=== PATIENT | female | born 1970 | race Caucasian/White ===

== ENCOUNTER 2018-11-21 12:40 | Inpatient (IN) | payer OTHER ==
[~2018-11-21] VITALS: Ht 167.6 cm; Wt 80.0 kg
[2018-11-21 13:32] LABS: Base Excess Venous -15.9 mmol/L; PCO2 Venous 36.7 mmHg (38-42); PO2 Venous 46.3 mmHg (38-42); pH Blood Venous 7.15 (7.34-7.37)
[2018-11-21 13:37] LABS: BASOPHILS ABSOLUTE AUTO 0.07 K/mm3 (0.00-0.23); BASOPHILS PERCENT AUTO 1 % (0-2); EOSINOPHILS ABSOLUTE AUTO 0.08 K/mm3 (0.00-0.68); EOSINOPHILS PERCENT AUTO 1 % (0-6); Hematocrit 44.4 % (33.0-51.0); Hemoglobin 14.9 g/dL (11.5-16.0); IMMATURE GRAN ABSOLUTE AUTO 0.06 K/mm3 (0.00-0.10); IMMATURE GRAN PERCENT AUTO 1 % (0-1); LYMPHOCYTES PERCENT AUTO 18 % (21-46); MONOCYTES ABSOLUTE AUTO 0.41 K/mm3 (0.16-1.47); MONOCYTES PERCENT AUTO 4 % (4-13); Mean Corpuscular HGB 33.1 pg (26.0-34.0); Mean Corpuscular HGB Conc 33.6 g/dL (31.5-36.5); Mean Corpuscular Volume 99 fL (80-100); Mean Platelet Volume 11.7 fL (9.1-12.4); NEUTROPHILS ABSOLUTE AUTO 8.73 K/mm3 (1.96-9.15); NEUTROPHILS PERCENT AUTO 77 % (41-73); Platelet Count 298 K/mm3 (150-400); RDW Coefficient Variation 11.3 % (11.7-14.2); RDW Standard Deviation 40.8 fL (35.1-46.3); White Blood Cell Count 11.35 K/mm3 (4.00-11.30)
[2018-11-21 14:08] LABS: Source, Urine Clean Catch
[2018-11-21 14:09] LABS: Alanine Aminotransfer (ALT/SGP 26 U/L (12-78); Albumin, Blood 4.4 g/dL (3.4-5.0); Alk Phos 97 U/L (50-136); Anion Gap 19 mmol/L (6-16); Aspartate Aminotrans (AST/SGOT 18 U/L (12-37); Bilirubin, Total 0.8 mg/dL (0.1-1.0); Blood Urea Nitrogen 21 mg/dL (8-24); Bun/Creatinine Ratio 24.1 (12.0-20.0); CO2, Blood 14 mmol/L (21-32); Chloride, Blood 98 mmol/L (98-108); Creatinine, Blood 0.87 mg/dL (0.40-1.00); Globulin, Blood 4.3 g/dL (2.2-4.0); Glomerular Filtration Rate >60 (60-); Glucose, Blood 441 mg/dL (70-99); Potassium, Blood 4.8 mmol/L (3.5-5.5); Sodium, Blood 131 mmol/L (136-145); Total Protein, Blood 8.7 g/dL (6.4-8.2)
[2018-11-21] MEDS ORDERED: [UNRECOGNIZED DRUG - OTHER] (14:09)
[2018-11-21 14:12] LABS: Bilirubin, Urine Neg (Neg); Blood, Urine Neg (Neg); Glucose Qualitative, Urine 4+ (Neg); Ketones, Urine 4+ (Neg); Leukocyte Esterase, Urine Neg (Neg); Nitrite, Urine Neg (Neg); Protein, Urine 2+ (Neg); Specific Gravity, Urine 1.025 (1.003-1.022); Urobilinogen, Urine NORM (Normal)
[2018-11-21 14:20] LABS: Beta-hydroxybutyrate 74.2 mg/dL (0.2-2.8)
[2018-11-21 14:26] LABS: Appearance, Urine Clear (Clear); Color, Urine Pale Yellow (P-Yellow)
[2018-11-21 14:29] LABS: Bacteria Mod /hpf; Red Blood Cells, Urine Not Seen /hpf (0-2); Squamous Epithelial Cells Mod /hpf (Few); White Blood Cells, Urine Not Seen /hpf (0-5)
--- NOTE | 2018-11-21 17:27 | NUR ---
INITIAL ASSESSMENT PATIENT ARRIVED TO UNIT AT 1715. PATIENT ALERT AND ORIENTED X 4, AFEBRILE. PATIENT STATES THAT SHE FEELS "WEAK AND TIRED". PATIENT DENIES PAIN. PATIENT SATTING 90% AND GREATER ON RA. LUNGS CLEAR T/O. PATIENT DENIES COUGH. PATIENT IN SR TO ST, HR 90S TO LOW 100S. BP STABLE. PATIENT DENIES NAUSEA. PATIENT NPO AT THIS TIME. WNL. SKIN WNL. INSULIN DRIP INFUSING AT 7 UNITS/ HOUR, NS AT 125 MLS/ HOUR. PATIENT ORIENTED TO UNIT, ROOM, AND CALL LIGHT. BED LOW, CALL LIGHT IN REACH. WILL CONTINUE TO MONITOR PATIENT FREQUENTLY THROUGHOUT SHIFT.
[2018-11-21] MEDS ORDERED: ESTR2 PO (17:38)
--- NOTE | 2018-11-21 19:42 | NUR ---
SHIFT SUMMARY PATIENT REMAINED ALERT AND ORIENTED X 4, AFEBRILE. PATIENT STATES THAT SHE IS FEELING QUITE A BIT BETTER. PATIENT HAS HAD NO COMPLAINTS THIS SHIFT. RESP REMAINED WNL. PATIENT REMAINED IN SR TO ST, HR 90S TO LOW 100S. BP STABLE. PATIENT HAS HAD NO COMPLAINTS OF NAUSEA. PATIENT HAS REMAINED NPO. PATIENT DID NOT HAVE BM THIS SHIFT. WNL. SKIN WNL. INSULIN DRIP CURRENTLY INFUSING AT 4 UNITS/ HOUR, NS REMAINS AT 125 MLS/ HOUR. FAMILY REMAINS IN ROOM VISITING WITH PATIENT. BED LOW, CALL LIGHT IN REACH. REPORT HAS BEEN GIVEN TO ASSUMING CREEL CLERK RN.
--- NOTE | 2018-11-21 20:57 | NUR ---
ASSUMED CARE OF PT, REPORT RCV'D FROM [facility]. PT ALERT/ORIENTED NO COMPLAINT OF DIZZINESS/NAUSEA/VOMITING. PT CURRENTLY ON INSULIN @ 4U/HR WITH NS @125 ML/HR. ALL VSS, PT STANDBY ASSIST WITH NO DIFFICULTY AMBULATING. SEE FULL SHIFT ASSESSMENT.
[2018-11-21 21:21] LABS: Anion Gap 11 mmol/L (6-16); Blood Urea Nitrogen 16 mg/dL (8-24); Bun/Creatinine Ratio 21.1 (12.0-20.0); CO2, Blood 18 mmol/L (21-32); Calcium, Blood 8.1 mg/dL (8.5-10.1); Chloride, Blood 109 mmol/L (98-108); Creatinine, Blood 0.76 mg/dL (0.40-1.00); Glomerular Filtration Rate >60 (60-); Glucose, Blood 138 mg/dL (70-99); Potassium, Blood 4.4 mmol/L (3.5-5.5); Sodium, Blood 138 mmol/L (136-145)
[2018-11-22 02:22] LABS: Hematocrit 36.1 % (33.0-51.0); Hemoglobin 12.5 g/dL (11.5-16.0); Mean Corpuscular HGB 33.7 pg (26.0-34.0); Mean Corpuscular HGB Conc 34.6 g/dL (31.5-36.5); Mean Corpuscular Volume 97 fL (80-100); Mean Platelet Volume 10.8 fL (9.1-12.4); Platelet Count 273 K/mm3 (150-400); RDW Coefficient Variation 11.3 % (11.7-14.2); Red Blood Cell Count 3.71 M/mm3 (3.80-5.20)
[2018-11-22 02:41] LABS: Alanine Aminotransfer (ALT/SGP 17 U/L (12-78); Albumin, Blood 3.2 g/dL (3.4-5.0); Alk Phos 65 U/L (50-136); Anion Gap 7 mmol/L (6-16); Aspartate Aminotrans (AST/SGOT 8 U/L (12-37); Bilirubin, Total 0.3 mg/dL (0.1-1.0); Blood Urea Nitrogen 13 mg/dL (8-24); Bun/Creatinine Ratio 16.8 (12.0-20.0); CO2, Blood 23 mmol/L (21-32); Chloride, Blood 110 mmol/L (98-108); Creatinine, Blood 0.77 mg/dL (0.40-1.00); Globulin, Blood 3.3 g/dL (2.2-4.0); Glomerular Filtration Rate >60 (60-); Glucose, Blood 125 mg/dL (70-99); Potassium, Blood 3.6 mmol/L (3.5-5.5); Sodium, Blood 140 mmol/L (136-145)
[2018-11-22 02:42] LABS: Total Protein, Blood 6.5 g/dL (6.4-8.2)
--- NOTE | 2018-11-22 06:07 | NUR ---
SHIFT SUMMARY NO ACUTE CHANGES OVERNIGHT. PT SLEPT WELL WITH NO INCIDENCE OF NAUSEA OR VOMITING. GLUCOSE STABLE AROUND 115 ON 1 UNIT INSULIN, TITRATED INSULIN TO 0.5 U/HR AND GLUCOSE SPIKED TO 158. ANION GAP CLOSED AT 2100. D51/2 NS BAG 1 OF 2 RUNNING @ 75 ML/HR. PT COMPLAINS OF HEADACHE, GIVEN TYLENOL. WILL REPORT TO DAYSHIFT NURSE.
--- NOTE | 2018-11-22 07:30 | NUR ---
ASSUMED CARE PT. ALERT AND ORIENTED THIS AM. PT. VSS THIS AM. CURRENTLY ON INSULIN GTT AT 2U/HR AND D51/2 NS. PT ABLE TO REPOSITION SELF IN BED. AT BEDSIDE. LIZAN. CALL LIGHT IN REACH.
[2018-11-22 08:27] LABS: Anion Gap 6 mmol/L (6-16); Blood Urea Nitrogen 12 mg/dL (8-24); Bun/Creatinine Ratio 17.3 (12.0-20.0); CO2, Blood 23 mmol/L (21-32); Calcium, Blood 7.9 mg/dL (8.5-10.1); Chloride, Blood 109 mmol/L (98-108); Glomerular Filtration Rate >60 (60-); Glucose, Blood 179 mg/dL (70-99); Potassium, Blood 3.8 mmol/L (3.5-5.5); Sodium, Blood 138 mmol/L (136-145)
--- NOTE | 2018-11-22 09:14 | NUR ---
CALL TO DR. PIERCE PT HAS PERSISTANT HEADACHE, UNCHANGED WITH TYLENOL ADMIN. PT. REPORTS UNABLE TO EAT AT THIS TIME DUE TO SEVERITY OF HEADACHE, CALL FOR PAIN MEDICATION. 50MCG OF FENTANYL GIVEN FOR HEADACHE WELL ZOFRAN. PT. VSS. AT BEDSIDE. WILL CONTINUE TO MONITOR.
--- NOTE | 2018-11-22 09:58 | NUR ---
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 PT. VSS AT THIS TIME. INSULIN GTT AND D5 0.45% DC'D.
--- NOTE | 2018-11-22 12:42 | NUR ---
DR. PIERCE IN TO SEE PT PT TO PLACE INSULIN PUMP AT THIS TIME WITH CLOSE MONITORING OF BLOOD SUGAR. PLANS FOR MONITORING THIS AFTERNOON AND PT TO RETURN HOME THIS EVENING. PT VSS AT THIS TIME. PT STATUS CHANGED TO MEDICAL FLOOR. PT HAS POOR APPETITE AND WILL BE PRESCRIBED NAUSEA MEDICINE FOR DISCHARGE. PER DR. PIERCE IF PT WISHES TO STAY TONIGHT THEN DICHARGE ORDER CAN BE RETRACTED.
[2018-11-22 14:34] LABS: Anion Gap 10 mmol/L (6-16); Blood Urea Nitrogen 11 mg/dL (8-24); Bun/Creatinine Ratio 16.6 (12.0-20.0); CO2, Blood 20 mmol/L (21-32); Calcium, Blood 8.2 mg/dL (8.5-10.1); Chloride, Blood 105 mmol/L (98-108); Creatinine, Blood 0.66 mg/dL (0.40-1.00); Glomerular Filtration Rate >60 (60-); Glucose, Blood 262 mg/dL (70-99); Potassium, Blood 4.4 mmol/L (3.5-5.5); Sodium, Blood 135 mmol/L (136-145)
--- NOTE | 2018-11-22 15:07 | NUR ---
Per admit trigger, I met with spouse of pt to offer information/education regarding Advanced Directives. Pt was sleeping soundly and spouse did not want her awakened. Spouse declined need for advacned care planning.
[2018-11-22] MEDS ORDERED: ONDA4ODT MM (16:21)
[2018-11-22] MEDS ORDERED: METO10 PO (16:22)
[2018-11-22] MEDS ORDERED: HUMALOG KW200 UNIT/1 SC (16:35)
--- NOTE | 2018-11-22 18:41 | NUR ---
SHIFT SUMMARY PT. ALERT AND ORIENTED. INDEPENDENT IN ROOM. PT HAD SEVERE HEADACHE T/O DAY. WAS SUPPOSED TO D/C TO HOME TODAY HOWEVER DR. PIERCE TALKED WITH PT AND PER DR. PIERCE OKAY FOR PT TO BE DCD TO HOME TOMORROW. PT. VSS T/O SHIFT. NADN. BG STABLE AFTER INSULIN GTT DCD. PT. CURRENTLY HAS HOME INSULIN PUMP ON PER DR. PIERCE AND IS GETTING ADDITIONAL COVERAGE AC &HS. REPORT TO ONCOMING SANDIP.
--- NOTE | 2018-11-22 19:45 | NUR ---
ASSUMED CARE PT CARE ASSUMED AT APPROXIMATELY 1900. PT CURRENTLY RESTING IN BED WITH FAMILY AT BEDSIDE. VSS. INSULIN PUMP CONNECTED AND ADMINISTERING 1.1 U/HR BASAL RATE. PER ORDERS, PT TO RECEIVE LOW SLIDING SCALE COVERAGE AC/HS IN ADDITION TO INSULIN PUMP RATE. PT AWARE AND AGREEABLE TO PLAN OF CARE. PT REPORTS THAT HEADACE HAS DISSIPATED FROM EARLIER IN THE DAY. PT INFORMED THAT SHE IS MEDICAL FLOOR STATUS AND COULD POTENTIALLY BE MOVED UPSTAIRS DURING THE NIGHT IF CRITICAL PATIENT IS ADMITTED AND IN NEED OF ROOM. PT REPORTS UNDERSTANDING. WILL CONTINUE TO MONITOR AND ASSESS. BED IN LOW POSITION, CALL LIGHT IN REACH.
[2018-11-22 20:45] LABS: Anion Gap 11 mmol/L (6-16); Blood Urea Nitrogen 10 mg/dL (8-24); Bun/Creatinine Ratio 15.4 (12.0-20.0); CO2, Blood 18 mmol/L (21-32); Calcium, Blood 8.5 mg/dL (8.5-10.1); Chloride, Blood 107 mmol/L (98-108); Creatinine, Blood 0.65 mg/dL (0.40-1.00); Glomerular Filtration Rate >60 (60-); Glucose, Blood 236 mg/dL (70-99); Potassium, Blood 4.3 mmol/L (3.5-5.5); Sodium, Blood 136 mmol/L (136-145)
--- NOTE | 2018-11-23 02:30 | NUR ---
CBG BLOOD GLUCOSE CHECKED VIA INSULIN PUMP AND REMAINS AT 235 MG/DL AT THIS TIME. WILL CONTINUE WITH MONITORING.
[2018-11-23 02:42] LABS: Anion Gap 13 mmol/L (6-16); Blood Urea Nitrogen 8 mg/dL (8-24); Bun/Creatinine Ratio 11.9 (12.0-20.0); CO2, Blood 16 mmol/L (21-32); Calcium, Blood 8.1 mg/dL (8.5-10.1); Chloride, Blood 107 mmol/L (98-108); Creatinine, Blood 0.67 mg/dL (0.40-1.00); Glomerular Filtration Rate >60 (60-); Glucose, Blood 265 mg/dL (70-99); Potassium, Blood 4.4 mmol/L (3.5-5.5); Sodium, Blood 136 mmol/L (136-145)
--- NOTE | 2018-11-23 06:24 | NUR ---
PROVIDER CONTACTED PT WITH STEADILY INCREASING BLOOD GLUCOSE LEVELS- 374 THIS AM. PT IS NAUSEOUS AND VOMITING THIS MORNING AND CONTINUES TO HAVE HEADACHE AFTER MEDICATION ADMINISTRATION. DR MONTALVO CONTACTED AND ORDERS RECEIVED TO CHANGE INSULIN ORDER TO MEDIUM SLIDING SCALE FOR AC/HS COVERAGE. WILL INPUT ORDER AND CONTINUE WITH MONITORING.
--- NOTE | 2018-11-23 06:27 | NUR ---
SHIFT SUMMARY PT HAS REMAINED AOX4 THROUHGOUT SHIFT. VSS. PLEASANT AND COOPERATIVE WITH CARE. PT CONTINUES TO AMBULATE INDEPENDENTLY IN ROOM WITHOUT DIFFICULTY. PT CONTINUES TO REPORT MAUSEA AND VOMITING THAT DECREASES MINIMALLY WITH ORDERED MEDICATIONS. PT MEDICATED FOR HEADACHE PAIN THAT DECAREASED WITH ORDERED MEDICATIONS TEMPORARILY, BUT INCREASED WHEN MEDICATION WORE OFF. PHYSICIAN CONTACTED THIS AM DUE TO RISING BLOOD GLUCOSE LEVELS THROUGHOUT THE NIGHT. NO OTHER CHANGES NOTED FROM INITIAL ASSESSMENT. WILL CONTINUE TO MONITOR AND REPORT TO ONCOMING SHIFT RN. BED IN LOW POSITION, CALL LIGHT IN REACH.
[2018-11-23 09:23] LABS: Anion Gap 18 mmol/L (6-16); Blood Urea Nitrogen 11 mg/dL (8-24); Bun/Creatinine Ratio 15.4 (12.0-20.0); CO2, Blood 11 mmol/L (21-32); Calcium, Blood 8.7 mg/dL (8.5-10.1); Chloride, Blood 105 mmol/L (98-108); Creatinine, Blood 0.71 mg/dL (0.40-1.00); Glomerular Filtration Rate >60 (60-); Glucose, Blood 359 mg/dL (70-99); Potassium, Blood 4.8 mmol/L (3.5-5.5); Sodium, Blood 134 mmol/L (136-145)
--- NOTE | 2018-11-23 11:34 | NUR ---
PT'S INSULIN GTT AND IV FLUIDS RESTARTED PER DR. PIERCE'S ORDERS. PT SWITCHED BACK TO ICU STATUS. PT WAS ABLE TO TOLERATE GETTING UP TO SHOWER BEFORE IV'S RESTARTED. BACK IN BED RESTING NOW. PT HAS ONLY WANTED TO SIP WATER, REFUSED ANY FOOD SO FAR EVEN THOUGH SHE STATES HER NAUSEA IS IMPROVED. CONTINUING TO MONITOR.
--- NOTE | 2018-11-23 13:20 | NUR ---
REASSESSMENT: PT IS RESTING IN BED. SHE CONTINUES TO HAVE A HEADACHE THAT RESOLVES WITH FENTANYL, BUT KEEPS COMING BACK. HER NAUSEA HAS IMPROVED BUT PT IS STILL REFUSING ANYTHING TO EAT. INSULIN GTT INFUSING. IV FLUIDS SWITCHED TO D5 1/2NS PER DR. PIERCE'S ORDERS WITH PT'S BG BEING 216. PT'S HAS REMAINED AT THE BEDSIDE AND SPOKE WITH DR. PIERCE WHEN HE ROUNDED. ALL QUESTIONS HAVE BEEN ANSWERED. CONTINUING TO MONITOR.
[2018-11-23 15:07] LABS: Anion Gap 11 mmol/L (6-16); Blood Urea Nitrogen 10 mg/dL (8-24); Bun/Creatinine Ratio 14.6 (12.0-20.0); CO2, Blood 17 mmol/L (21-32); Calcium, Blood 8.1 mg/dL (8.5-10.1); Chloride, Blood 109 mmol/L (98-108); Creatinine, Blood 0.69 mg/dL (0.40-1.00); Glomerular Filtration Rate >60 (60-); Glucose, Blood 223 mg/dL (70-99); Potassium, Blood 4.4 mmol/L (3.5-5.5); Sodium, Blood 137 mmol/L (136-145)
--- NOTE | 2018-11-23 16:29 | NUR ---
SHIFT SUMMARY: PT HAS BEEN RESTING IN BED THROUGHOUT THE DAY. SHE DID GET UP TO SHOWER. HER HEADACHE HAS IMPROVED SINCE THE INSULIN GTT STARTED AND HER BLOOD SUGARS ARE BETTER CONTROLLED. INSULIN CURRENTLY INFUSING AT 3.5UN/HR. SHE STILL HAS REFUSED TO EAT OR DRINK ANYTHING EXCEPT WATER. HER HR HAS SLOWED DOWN FROM ABOVE 100 TO THE 80S AND 90S, BP REMAINS STABLE. NO OTHER ACUTE CHANGES THIS SHIFT.
--- NOTE | 2018-11-23 19:00 | NUR ---
ASSUMED CARE ASSUMED CARE OF PATIENT. AWAKE AND ALERT. VISITING WITH FAMILY. DENIES C/O NAUSEA AT THIS TIME. C/O MILD HEADACHE- DENIES NEED FOR PAIN MED. REPOSITIONS SELF IN BED. INSULIN GTT CONTINUES @ 3UNITS/HR. D5 1/2NS STARTED AT 200CC/HR BY DAY SHIFT RN. VOIDING WITHOUT DIFFICULTY. SEE SHIFT ASSESSMENT FOR FULL ASSESSMENT.
[2018-11-23 20:44] LABS: Anion Gap 8 mmol/L (6-16); Blood Urea Nitrogen 8 mg/dL (8-24); Bun/Creatinine Ratio 12.6 (12.0-20.0); CO2, Blood 21 mmol/L (21-32); Calcium, Blood 7.9 mg/dL (8.5-10.1); Chloride, Blood 110 mmol/L (98-108); Creatinine, Blood 0.64 mg/dL (0.40-1.00); Glomerular Filtration Rate >60 (60-); Glucose, Blood 164 mg/dL (70-99); Potassium, Blood 3.9 mmol/L (3.5-5.5); Sodium, Blood 139 mmol/L (136-145)
--- NOTE | 2018-11-23 21:10 | NUR ---
LABS/CALL TO MD Cinthia GILLESPIE, MELI, NOTIFIED OF BMP RESULTS AND THAT ANION GAP IS CLOSED. NO NEW ORDERS RECEIVED AT THIS TIME. PLAN IS TO CONTINUE INSULIN GTT UNTIL AM.
--- NOTE | 2018-11-23 21:40 | NUR ---
PAIN/NAUSEA C/O NAUSEA AND INCREASED HEADACHE 10/27. LIGHT SENSITIVITY NOTED. MEDICATED WITH REGLAN 10MG IV FOR NAUSEA AND FENTANYL 50MCG IV FOR PAIN.
[2018-11-23 23:13] LABS: Source, Urine Clean Catch
[2018-11-23 23:16] LABS: Bilirubin, Urine Neg (Neg); Blood, Urine Neg (Neg); Glucose Qualitative, Urine 4+ (Neg); Ketones, Urine 4+ (Neg); Leukocyte Esterase, Urine Neg (Neg); Nitrite, Urine Neg (Neg); Protein, Urine 2+ (Neg); Urobilinogen, Urine NORM (Normal)
[2018-11-23 23:22] LABS: Appearance, Urine Clear (Clear); Color, Urine Yellow (P-Yellow)
[2018-11-23 23:23] LABS: Bacteria Many /hpf; Red Blood Cells, Urine 0-2 /hpf (0-2); Squamous Epithelial Cells Mod /hpf (Few); White Blood Cells, Urine 0-2 /hpf (0-5)
--- NOTE | 2018-11-24 00:26 | NUR ---
NAUSEA/EMESIS EMESIS OF APPROXIMATELY 150CC BILE GREEN FLUID. MEDICATED WITH ZOFRAN 4MG IV. INSULIN INFUSING @ 2UNITS/HR AND D5 1/2NS INFUSING @ 75CC/HR.
[2018-11-24 02:37] LABS: BASOPHILS ABSOLUTE AUTO 0.03 K/mm3 (0.00-0.23); BASOPHILS PERCENT AUTO 0 % (0-2); EOSINOPHILS ABSOLUTE AUTO 0.03 K/mm3 (0.00-0.68); EOSINOPHILS PERCENT AUTO 0 % (0-6); Hematocrit 36.6 % (33.0-51.0); Hemoglobin 12.8 g/dL (11.5-16.0); IMMATURE GRAN ABSOLUTE AUTO 0.02 K/mm3 (0.00-0.10); IMMATURE GRAN PERCENT AUTO 0 % (0-1); LYMPHOCYTES ABSOLUTE AUTO 1.75 K/mm3 (0.84-5.20); LYMPHOCYTES PERCENT AUTO 25 % (21-46); MONOCYTES ABSOLUTE AUTO 0.53 K/mm3 (0.16-1.47); MONOCYTES PERCENT AUTO 8 % (4-13); Mean Corpuscular HGB 33.5 pg (26.0-34.0); Mean Corpuscular Volume 96 fL (80-100); Mean Platelet Volume 10.6 fL (9.1-12.4); NEUTROPHILS PERCENT AUTO 67 % (41-73); Platelet Count 262 K/mm3 (150-400); RDW Coefficient Variation 11.4 % (11.7-14.2); RDW Standard Deviation 40.3 fL (35.1-46.3); Red Blood Cell Count 3.82 M/mm3 (3.80-5.20); White Blood Cell Count 7.06 K/mm3 (4.00-11.30)
[2018-11-24 02:56] LABS: Alanine Aminotransfer (ALT/SGP 15 U/L (12-78); Albumin, Blood 3.1 g/dL (3.4-5.0); Albumin/Globulin Ratio 0.9 (0.8-1.8); Alk Phos 64 U/L (50-136); Anion Gap 9 mmol/L (6-16); Aspartate Aminotrans (AST/SGOT 5 U/L (12-37); Bilirubin, Total 0.3 mg/dL (0.1-1.0); Blood Urea Nitrogen 7 mg/dL (8-24); Bun/Creatinine Ratio 12.3 (12.0-20.0); CO2, Blood 20 mmol/L (21-32); Chloride, Blood 110 mmol/L (98-108); Creatinine, Blood 0.57 mg/dL (0.40-1.00); Globulin, Blood 3.4 g/dL (2.2-4.0); Glomerular Filtration Rate >60 (60-); Glucose, Blood 175 mg/dL (70-99); Potassium, Blood 3.7 mmol/L (3.5-5.5); Sodium, Blood 139 mmol/L (136-145); Total Protein, Blood 6.5 g/dL (6.4-8.2)
--- NOTE | 2018-11-24 06:10 | NUR ---
SHIFT SUMMARY NO ACUTE CHANGES DURING NOC. VSS. MEDICATED WITH REGLAN 10MG IV X 1 AND ZOFRAN 4MG IV X 1 DOSE FOR NAUSEA/VOMITING WITH RELIEF. MEDICATED WITH FENTANYL 25MCG IV X 1 FOR C/O HEADACHE WITH GOOD RELIEF. INSULIN GTT INFUSED BETWEEN 2-3UNITS/HR- NOW INFUSING AT 2UNITS/HR. D5 1/2NS INFUSING AT 75CC/HR. LABS CALLED TO HOSPITALIST EARLIER IN SHIFT, BUT HOSPITALIST WANTED TO CONTINUE INSULIN GTT T/O NOC. PLAN IS TO TRANSITION PATIENT TO SLIDING SCALE INSULIN THIS AM. WILL REPORT TO DAY SHIFT RN WHEN AVAILABLE.
[2018-11-24 09:07] LABS: Anion Gap 4 mmol/L (6-16); Blood Urea Nitrogen 5 mg/dL (8-24); Bun/Creatinine Ratio 8.5 (12.0-20.0); CO2, Blood 24 mmol/L (21-32); Calcium, Blood 8.1 mg/dL (8.5-10.1); Chloride, Blood 110 mmol/L (98-108); Creatinine, Blood 0.59 mg/dL (0.40-1.00); Glomerular Filtration Rate >60 (60-); Glucose, Blood 150 mg/dL (70-99); Potassium, Blood 3.2 mmol/L (3.5-5.5); Sodium, Blood 138 mmol/L (136-145)
--- NOTE | 2018-11-24 10:00 | NUR ---
BEGINNING OF SHIFT Assumed care of pt at 0700 with Nyla OROPEZA. Pt on room air. SR per monitor. Independent in room, steady on feet. Pt on insulin drip at 2 units/hr. Blood sugar monitoring Q2H. Plans to keep insulin drip on until hospitalist rounds on patient. Pt states she is no longer feeling nauseous. Plan to assess tolerance of clear liquids.
--- NOTE | 2018-11-24 11:13 | NUR ---
UPDATE Pt tolerated clear liquids well. Pt denies nausea or abdominal pain. Call placed to Dr Lyon to discuss anion gap and blood sugars. New orders given.
--- NOTE | 2018-11-24 11:30 | NUR ---
DR PIERCE AT BEDSIDE Provider states insulin drip to be turned off one hour after administering lantus. Pt okay for ADA diet. New orders given for CBG monitoring. If blood sugars stable, pt okay to go up to medical floor.
[2018-11-24 15:49] LABS: Anion Gap 9 mmol/L (6-16); Blood Urea Nitrogen 6 mg/dL (8-24); Bun/Creatinine Ratio 9.4 (12.0-20.0); CO2, Blood 21 mmol/L (21-32); Calcium, Blood 8.2 mg/dL (8.5-10.1); Chloride, Blood 110 mmol/L (98-108); Creatinine, Blood 0.64 mg/dL (0.40-1.00); Glomerular Filtration Rate >60 (60-); Glucose, Blood 206 mg/dL (70-99); Potassium, Blood 3.9 mmol/L (3.5-5.5); Sodium, Blood 140 mmol/L (136-145)
--- NOTE | 2018-11-24 17:45 | NUR ---
TRANSFER TO MEDICAL FLOOR Plans for pt to transfer to medical floor. Telephone report given to med floor nurse, Sonali. Plans for pt to move to room 336 when she is done eating dinner. Pt and spouse verbalize understanding of plan of care.
--- NOTE | 2018-11-24 18:51 | NUR ---
SHE ARRIVED FROM ICU AT 1744. SHE IS A&O AND AMBULATORY. IVF'S RESUMED. HAT IN TOILET FOR MEASURING OUTPUTS. CALL LIGHT IN REACH. DRESSING CHANGED ON RAC SALINE LOCK. FLUIDS INFUSIMG THROUGH THE RH SITE. SHE HAS BEEN ON HER PHONE SINCE ARRIVAL TO ANSWER SOME CALLS SHE RECEIVED OVER THE PAST FEW DAYS WHILE SHE WAS SO SICK. LAST CBG 242. NO NAUSEA AFTER HER DINNER THAT SHE SAMPLED IN THE ICU. NO COMPLAINTS.
[2018-11-24 21:00] LABS: Anion Gap 7 mmol/L (6-16); Blood Urea Nitrogen 8 mg/dL (8-24); Bun/Creatinine Ratio 11.4 (12.0-20.0); CO2, Blood 22 mmol/L (21-32); Calcium, Blood 8.2 mg/dL (8.5-10.1); Chloride, Blood 111 mmol/L (98-108); Glomerular Filtration Rate >60 (60-); Glucose, Blood 257 mg/dL (70-99); Potassium, Blood 3.9 mmol/L (3.5-5.5); Sodium, Blood 140 mmol/L (136-145)
[2018-11-25 05:27] LABS: BASOPHILS ABSOLUTE AUTO 0.05 K/mm3 (0.00-0.23); BASOPHILS PERCENT AUTO 1 % (0-2); EOSINOPHILS ABSOLUTE AUTO 0.13 K/mm3 (0.00-0.68); EOSINOPHILS PERCENT AUTO 2 % (0-6); Hematocrit 36.5 % (33.0-51.0); Hemoglobin 12.5 g/dL (11.5-16.0); IMMATURE GRAN ABSOLUTE AUTO 0.02 K/mm3 (0.00-0.10); IMMATURE GRAN PERCENT AUTO 0 % (0-1); LYMPHOCYTES ABSOLUTE AUTO 2.89 K/mm3 (0.84-5.20); LYMPHOCYTES PERCENT AUTO 47 % (21-46); MONOCYTES ABSOLUTE AUTO 0.43 K/mm3 (0.16-1.47); MONOCYTES PERCENT AUTO 7 % (4-13); Mean Corpuscular HGB 32.4 pg (26.0-34.0); Mean Corpuscular HGB Conc 34.2 g/dL (31.5-36.5); Mean Corpuscular Volume 95 fL (80-100); Mean Platelet Volume 10.7 fL (9.1-12.4); NEUTROPHILS ABSOLUTE AUTO 2.61 K/mm3 (1.96-9.15); NEUTROPHILS PERCENT AUTO 43 % (41-73); Platelet Count 248 K/mm3 (150-400); RDW Coefficient Variation 11.6 % (11.7-14.2); RDW Standard Deviation 39.8 fL (35.1-46.3); Red Blood Cell Count 3.86 M/mm3 (3.80-5.20); White Blood Cell Count 6.13 K/mm3 (4.00-11.30)
[2018-11-25 05:55] LABS: Alanine Aminotransfer (ALT/SGP 17 U/L (12-78); Alk Phos 62 U/L (50-136); Anion Gap 8 mmol/L (6-16); Aspartate Aminotrans (AST/SGOT 6 U/L (12-37); Bilirubin, Total 0.4 mg/dL (0.1-1.0); Blood Urea Nitrogen 9 mg/dL (8-24); CO2, Blood 23 mmol/L (21-32); Calcium, Blood 8.1 mg/dL (8.5-10.1); Chloride, Blood 110 mmol/L (98-108); Creatinine, Blood 0.64 mg/dL (0.40-1.00); Globulin, Blood 3.1 g/dL (2.2-4.0); Glomerular Filtration Rate >60 (60-); Glucose, Blood 185 mg/dL (70-99); Potassium, Blood 3.4 mmol/L (3.5-5.5); Sodium, Blood 141 mmol/L (136-145); Total Protein, Blood 6.1 g/dL (6.4-8.2)
--- NOTE | 2018-11-25 06:47 | NUR ---
EOS: PATIENT RESTED WELL THROUGH THE SHIFT HER SERUM GLUCOSE IS 180S THIS AM. PATIENT DENIED PAIN THIS SHIFT. NO ACUTE CHANGES TO REPORT.
[2018-11-25] MEDS ORDERED: BASAGLAR K100 UNIT/1 SC ×2 (08:35)
--- NOTE | 2018-11-25 09:49 | NUR ---
PATIENT D/C'D TO HOME WITH . RX MEDICATIONS CALLED INTO [facility] IN [facility]. REQUESTED A DOCTORS NOTE FOR WHEN PATIENT CAN RETURN TO WORK. WILL FAX TO [facility]S OFFICE AT [phone] WHEN NOTE AVAILABLE FROM DR. PIERCE . D/C INSTRUCTIONS AND EDUCATION DISCUSSED WITH PATIENT AND COPY PROVIDED. PATIENT DENIES ANY FURTHER QUESTIONS OR CONCERNS.
--- NOTE | 2018-11-25 10:10 | NUR ---
DISCHARGE FOLLOW UP APPT: PT STATES SHE WILL MAKE HER OWN FOLLOW UP APPT. WITH HER PERSONAL COMPUTER NETWORK ENGINEER DR. STILES AT [facility].
== END 2018-11-25 09:50 | disposition home or self-care (01) | DRG 639 ==
LOC: ER 12:40 → ICUW 12:41 → ICUE 12:41 → ER 17:13 → ICUE 17:20 → MEDS 11-24 17:44 → ENPENDDIS 11-25 09:23 → MEDS 11-25 09:50
PROVIDERS: Internal Medicine; ADMIT Internal Medicine
DX: E10.10 Type 1 diabetes mellitus with ketoacidosis without coma (principal); E86.0 Dehydration; E87.6 Hypokalemia; Z96.41 Presence of insulin pump (external) (internal)
CPT/HCPCS: 36415; 80048; 80053; 81001; 82010; 82803; 82947; 85025; 85027; 87077; 87086; 87186; 93005; 93010; 96361; 96365; 96372; 96375; 96376; 99285-25; A9270; G0378; J1200; J1650; J1815; J1885; J2405; J2765; J3010; J3480; J7030; J7042; J7120